=== PATIENT | male | born 1960 | race Caucasian/White ===

== ENCOUNTER 2017-11-19 07:53 | Day surgery (SDC) | payer BC, OTHER ==
[~2017-11-19 07:53] MED LIST: EPINEPHrine 1 MG/ML 30 ML MDV ONE; EPINEPHrine 1 MG/ML SDV ONE; Lactated Ringers 1,000 ML IV SCH; Lidocaine 1% 4 ML ONE; Lidocaine 1%/Sod Bicarbonate in NS 8.4% 1 ML Syringe IDERM PRN; Ropivacaine 0.5% 5 MG/ML 30 ML SDV ONE; Sodium Chloride 0.9% 10 ML Syringe FLUSH PRN
[2017-11-19] MEDS ORDERED: Propofol 200 MG/20 ML SDV ONE (08:29)
[2017-11-19] MEDS ORDERED: Midazolam 1 MG/ML 2 ML SDV ONE (08:30)
[2017-11-19] MEDS ORDERED: fentaNYL 250 MCG/5 ML SDV ONE (08:30)
[2017-11-19] MEDS ORDERED: Rocuronium 50 MG/5 ML Vial ONE (08:30)
[2017-11-19] MEDS ORDERED: ceFAZolin 1 GM Vial ONE ×2 (08:34→08:35)
--- NOTE | 2017-11-19 08:54 | PCM.PREANE ---
Preanesthetic Assessment - Anesthesia/Transfusion/Family Hx Anesthesia History: Prior Anesthesia Without Reaction Family History of Anesthesia Reaction: No Transfusion History: No Prior Transfusion(s) Intubation History: Unknown - Review of Systems General: No Symptoms Pulmonary: No Symptoms Cardiovascular: No Symptoms Gastrointestinal: No Symptoms Neurological: No Symptoms Other: Reports: None - Physical Assessment NPO Status Date: 11/18/17 NPO Status Time: 22:00 Pulse: 51 O2 Sat by Pulse Oximetry: 98 Respiratory Rate: 16 Blood Pressure: 130/80 Temperature: 97.6 C Vital Signs: Last Vital Signs Temp 36.4 C 11/19/17 08:26 Pulse 51 L 11/19/17 08:26 Resp 16 11/19/17 08:26 BP 130/80 11/19/17 08:26 Pulse Ox 98 11/19/17 08:26 Height: 1.88 m Weight: 78.471 kg ASA Class: 1 Mental Status: Alert & Oriented x3 Airway Class: Mallampati = 1 Dentition: Reports: Normal Dentition (pt does have loose rt front tooth, discussed risk with intubation) Thyro-Mental Finger Breadths: 3 Mouth Opening Finger Breadths: 3 ROM/Head Extension: Full Lungs: Clear to Auscultation, Normal Respiratory Effort Cardiovascular: Regular Rate, Regular Rhythm - Lab Values: Laboratory Last Values MRSA (PCR) Negative 11/09/17 12:05 - Allergies Allergies/Adverse Reactions: Allergies Allergy/AdvReac Type Severity Reaction Status Date / Time No Known Allergies Allergy Verified 11/18/17 13:16 - Acknowledgements Anesthesia Type Planned: General Anesthesia Pt an Appropriate Candidate for the Planned Anesthesia: Yes Alternatives and Risks of Anesthesia Discussed w Pt/Guardian: Yes Pt/Guardian Understands and Agrees with Anesthesia Plan: Yes PreAnesthesia Questionnaire HEENT History: Reports: Impaired Vision Cardiovascular History: Reports: Other (See Below) (angiogram normal was done d/t irreg HR found while giving blood) Other Cardiovascular History: angiogram Respiratory History: Reports: None Gastrointestinal History: Reports: Other (See Below) Other Gastrointestinal History: bilateral inguinal hernias Genitourinary History: Reports: BPH BANKRUPTCY ATTORNEY History: Reports: None Musculoskeletal History: Reports: None Neurological History: Reports: None Psychiatric History: Reports: None Endocrine/Metabolic History: Reports: None Hematologic History: Reports: None Immunologic History: Reports: None Oncologic (Cancer) History: Reports: None Dermatologic History: Reports: None - Past Surgical History Head Surgeries/Procedures: Reports: None HEENT Surgical History: Reports: None Cardiovascular Surgical History: Reports: None Respiratory Surgical History: Reports: None GI Surgical History: Reports: Colonoscopy Female Surgical History: Reports: None Male Surgical History: Reports: None Endocrine Surgical History: Reports: None Neurological Surgical History: Reports: None Musculoskeletal Surgical History: Reports: None Oncologic Surgical History: Reports: None Dermatological Surgical History: Reports: None - SUBSTANCE USE Smoking Status *Q: Never Smoker Recreational Drug Use History: No - HOME MEDS Home Medications: Home Meds Ascorbate Calcium [Vitamin C] 500 mg PO DAILY 11/18/17 [History] Multivitamin [Zoo Chews] 1 tab PO DAILY 11/18/17 [History] Tamsulosin [Flomax] 0.4 mg PO DAILY 11/18/17 [History] Acetaminophen/HYDROcodone [Ennis 325-5 MG] 1 - 2 tab PO Q6H PRN #40 tablet 11/19 [Rx] Cyclobenzaprine [Flexeril] 10 mg PO Q8H PRN #30 tab 11/19/17 [Rx] - CURRENT (IN HOUSE) MEDS Current Meds: Current Medications Lactated Ringer's (Ringers, Lactated) 1,000 mls @ 125 mls/hr IV ASDIRECTED CHRIS Stop: 11/19/17 18:00 Last Admin: 11/19/17 08:20 Dose: 125 mls/hr Lidocaine/Sodium Bicarbonate (Buffered Lidocaine 1% In Ns 8.4%) 0.25 ml IDERM ONETIME PRN PRN Reason: Prior to IV Start Stop: 11/19/17 18:00 Last Admin: 11/19/17 08:19 Dose: 0.25 ml Sodium Chloride (Saline Flush) 10 ml FLUSH ASDIRECTED PRN PRN Reason: Keep Vein Open Stop: 11/19/17 18:00 Discontinued Medications Bupivacaine HCl (Marcaine 0.25%) Confirm Administered Dose 30 ml .ROUTE .STK- MED ONE Stop: 11/19/17 08:33 Cefazolin Sodium (Ancef) Confirm Administered Dose 1 gm .ROUTE .STK-MED ONE Stop: 11/19/17 08:35 Cefazolin Sodium (Ancef) Confirm Administered Dose 1 gm .ROUTE .STK-MED ONE Stop: 11/19/17 08:36 Epinephrine HCl (Adrenalin) 3 mg .XX ASDIRECTED ONE Stop: 11/19/17 08:01 Epinephrine HCl (Adrenalin) 3 mg .XX ASDIRECTED ONE Stop: 11/19/17 07:01 Epinephrine HCl (Adrenalin) Confirm Administered Dose 1 mg .ROUTE .STK-MED ONE Stop: 11/19/17 06:30 Fentanyl (Sublimaze) Confirm Administered Dose 250 mcg .ROUTE .STK-MED ONE Stop: 11/19/17 08:31 Lidocaine HCl (Xylocaine-Mpf 1%) Confirm Administered Dose 4 mls @ as directed .ROUTE .STK-MED ONE Stop: 11/19/17 06:50 Midazolam HCl (Versed 1 Mg/Ml) Confirm Administered Dose 2 mg .ROUTE .STK-MED ONE Stop: 11/19/17 08:31 Propofol (Diprivan 20 Ml) Confirm Administered Dose 200 mg .ROUTE .STK-MED ONE Stop: 11/19/17 08:30 Rocuronium Ayer (Zemuron) Confirm Administered Dose 50 mg .ROUTE .STK-MED ONE Stop: 11/19/17 08:31 Ropivacaine (Naropin 0.5%) Confirm Administered Dose 30 ml .ROUTE .STK-MED ONE Stop: 11/19/17 06:30
[2017-11-19] MEDS: EPINEPHrine 1 MG/ML 30 ML MDV ONE ×2 (09:41→10:56)
[2017-11-19] MEDS: Bupivacaine 0.25% 30 ML SDV ONE ×2 (09:41→11:42)
[2017-11-19] MEDS ORDERED: Ondansetron 4 MG/2 ML SDV IVPUSH PRN (10:26)
[2017-11-19] MEDS ORDERED: Meperidine PF 50 MG/ML Syringe IVPUSH PRN (10:26)
[2017-11-19] MEDS ORDERED: fentaNYL 100 MCG/2 ML SDV IVPUSH PRN (10:26)
[2017-11-19] MEDS ORDERED: diphenhydrAMINE 50 MG/ML SDV IVPUSH PRN (10:26)
[2017-11-19] MEDS ORDERED: Lactated Ringers 1,000 ML ONE (10:30)
[2017-11-19] MEDS ORDERED: HYDROmorphone 0.5 MG/0.5 ML Syringe IVPUSH ONE (11:25)
--- NOTE | 2017-11-19 12:08 | PCM.POSTAN ---
POST ANESTHESIA ASSESSMENT - MENTAL STATUS Mental Status: Alert, Oriented - VITAL SIGNS Pulse Rate: 58 SaO2: 96 Resp Rate: 15 Blood Pressure: 126/79 Temperature: 97.9 C - RESPIRATORY Respiratory Status: Respiratory Rate WNL, Airway Patent, O2 Saturation Stable - CARDIOVASCULAR CV Status: Pulse Rate WNL, Blood Pressure Stable - GASTROINTESTINAL GI Status: No Symptoms - PAIN Pain Score: 0 - POST OP HYDRATION Hydration Status: Adequate & Stable
--- NOTE | 2017-11-19 12:37 | PCM.SN ---
- Free Text/Narrative Note: 11/19/2017 [id number] Time out performed. Requested to place right interscale block with ultrasound guidance and nerve stimulator for post op pain control per Dr. Greene and patient. Preop diagnosis right shoulder pain. Procedure is right shoulder arthrosocpy withsuprascapular notch decompression. Block assisted by Gustavo LUIS Informed consent obtained. Monitors and O2 placed at 2 l per n/c. Patient awake and talking during procedure.Right neck and clavicle area prepped with chlorprep. Sterile gloves, hat and mask worn. US probe with sterile sleeve placed midclavicular with ID of brachial plexus and subclavian artery. Brachial plexus followed cephalad to level of cricoid. Lidocaine 1% local anesthetic injected prior to block placement. 21 g 4 inch stimplex needle advanced with US guidance to brachial plexus. Positive forearm response at .3mA with nerve stimulator. Ceased with saline injection. Ropivacaine 0.5% with epi 1:200,000 injected in increments of 5 ml with negative aspiration before each injection to a total of 30 ml. Good spread of local anesthetic seen on US. Patient tolerated procedure well. Vitals stable with no complaints.
--- NOTE | 2017-11-19 12:39 | PCM48HPAN ---
Post Anesthesia Note - EVALUATION WITHIN 48HRS OF ANESTHETIC Vital Signs in Normal Range: Yes Patient Participated in Evaluation: Yes Respiratory Function Stable: Yes Airway Patent: Yes Cardiovascular Function Stable: Yes Hydration Status Stable: Yes Pain Control Satisfactory: Yes Nausea and Vomiting Control Satisfactory: Yes Mental Status Recovered: Yes - COMMENTS/OBSERVATIONS Free Text/Narrative:: Patient denies any anesthetic complications
--- NOTE | 2017-11-26 09:16 | PCM.OPNOTE ---
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
--- NOTE | 2017-11-26 09:44 | OR ---
DATE OF OPERATION: 11/19/2017 SURGEON: Luis Miguel Greene MD OPERATION PERFORMED: Right shoulder video arthroscopy, suprascapular notch decompression with extensive debridement. PREOPERATIVE DIAGNOSIS: Right shoulder suprascapular notch cyst with nerve compression. 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 ANESTHESIA: General endotracheal intubation with regional interscalene block. ANESTHESIA PROVIDER: Felicitas Kiran CRNA. MAINTENANCE PLANNING CLERK: Angie Novak PA-C. ESTIMATED BLOOD LOSS: Less than 5 mL. COMPLICATIONS: None. CONDITION: Stable. DESCRIPTION OF PROCEDURE: The patient was identified in the preoperative holding area. Proper site was marked and identified by the surgeon. The patient was taken back to the operating theater where after adequate anesthesia, the patient was placed in the lazy left lateral decubitus position. Wedge was placed posteriorly. All bony prominences were well padded. The patient was secured to the table. At this time, right upper extremity was sterilely prepped and draped in the usual sterile fashion. OR time-out was performed. The patient received 2 g of IV Ancef. A 12 pounds of traction was applied to the right upper extremity. At this time, posterior portal was created. Scope trocar was introduced to the glenohumeral joint. At this time, a cursory examination was performed. The patient was noted to have grade 2/3 chondromalacia of both the humeral head and the glenoid at this time. Undersurface of the rotator cuff was intact. At this time, I did make an accessory anterior lateral portal to be able to decompress the suprascapular notch with use of a spinal needle. Blunt dissection was taken down and the trocar was introduced anteriorly. At this time, an elevator was used to elevate the superior capsule off above the labrum. The labrum was noted to be significantly frayed and loose all the way circumferentially around with a significant chondromalacia and arthritic change of the glenohumeral joint. Blunt dissection and resector were used to take this down above the superior and posterior capsule all the way back to the suprascapular notch. There was noted to be a large cyst. The wall of the cyst was then taken down. The nerve was protected with 1 trocar and a Neviaser portal was then created, and I was able to vacuum out the cyst and it was found to be completely decompressed at this time. At this time, again extensive debridement had been done of the superior capsule as well as posterior capsule and of the chondromalacia. Attention was turned to the subacromial space. At this time, cursory examination was performed of the subacromial space. The rotator cuff was intact. The patient had a minor amount of erythema. Debridement was done of the subacromial space, but no other pathology was found. At this time, trocar was removed. A 3-0 nylon simple suture was used for closure of the skin. Sterile soft dressing as well as a regular sling was applied to the patient. He was sent to PACU in stable condition. ANGELA /[id number]
== END 2017-11-19 14:30 | disposition home or self-care (01) ==
LOC: JD.SDS 07:53
PROVIDERS: ATTEND Orthopaedic Surgery
DX: M71.311 Other bursal cyst, right shoulder (principal); M94.211 Chondromalacia, right shoulder; N40.1 Benign prostatic hyperplasia with lower urinary tract symptoms; R39.14 Feeling of incomplete bladder emptying; Z79.899 Other long term (current) drug therapy
CPT/HCPCS: 29823; 64415; 87641; J0171; J0690; J2001; J2250; J2795; J3010; J3490; J7120; 01630; J2704

== ENCOUNTER 2022-09-04 05:31 | Emergency (ER) | payer BC | END 2022-09-04 06:10 | disposition home or self-care (01) | LOC: JD.ED 05:31 | DX: S81.812A Laceration without foreign body, left lower leg, initial encounter (principal); W26.8XXA Contact with other sharp object(s), not elsewhere classified, initial encounter; Y92.89 Other specified places as the place of occurrence of the external cause; Y99.0 Civilian activity done for income or pay | CPT/HCPCS: 12004; 99282 ==